=== PATIENT | male | born 1945 | race Caucasian/White ===

== ENCOUNTER 2021-03-01 13:05 | Emergency (ER) | payer MEDICARE, OTHER ==
[~2021-03-01] VITALS: Ht 175.3 cm; Wt 100.0 kg
[~2021-03-01 13:05] MED LIST: AMOXICILLIN500 MG PO; ANTIVERT PO; CEPHALEXIN500 MG PO; CLONIDINE0.1 MG PO; HYDROCO/APAP1 TA9 PO; LORTAB 10 OR; LORTAB 5 OR; LORTAB 5/3255 MG PO; NAPROSYN500 MG OR; PERCOCET1 TA4 PO; ZOFRAN ODT4 MG OR; ZOFRAN ODT4 MG PO
[2021-03-01 15:08] LABS: HEMOGLOBIN 14.2 g/dl (14.0-18.0); IMMATURE GRANULOCYTES 0.3 % (0.0-5.0); MEAN CELL VOLUME 84.9 fL CALC (80.0-100.0); MEAN CORPUSCULAR HGB 27.4 pG CALC (26.0-32.0); MEAN CORPUSCULAR HGB CONC 32.3 g/dL CAL (32.0-36.0); NEUT# 17.69 thou/uL (1.82-7.42); RED BLOOD COUNT 5.18 mill/uL (4.70-6.10); RED CELL DISTRI WIDTH 14.2 % (11.5-15.5)
[2021-03-01 15:21] LABS: ALBUMIN 4.2 g/dL (3.2-5.0); BILIRUBIN, TOTAL 1.1 mg/dL (0.0-1.4); POTASSIUM 3.8 mmol/l (3.5-5.1); TOTAL PROTEIN 8.8 g/dL (6.3-8.2)
[2021-03-01 15:25] LABS: CREATININE 2.1 mg/dL (0.7-1.3)
[2021-03-01 19:23] VITALS: BP 165/80
--- NOTE | 2021-03-07 09:55 | NUR ---
03/07/2021: Spoke with Ronald, RN at [facility] about blood cultures that came back positive for gram positive cocci. Reported that pt was discharged from [facility] on 03/04/2021. Ronald stated that he would get the results over to the pts nurse and physician. Faxed results to [phone] at [phone].
== END 2021-03-01 19:15 ==
LOC: ED 13:05
PROVIDERS: Emergency Medicine
DX: N17.9 Acute kidney failure, unspecified (principal); N13.2 Hydronephrosis with renal and ureteral calculous obstruction; Z20.822 Contact with and (suspected) exposure to COVID-19

== ENCOUNTER 2021-10-02 19:05 | Observation (INO) | payer MEDICARE, OTHER ==
[~2021-10-02] VITALS: Ht 175.3 cm; Wt 93.7 kg
[2021-10-02] VITALS (8 sets, daily range): BP systolic 135–167; BP diastolic 82–102
[2021-10-02 19:31] LABS: GFR FOR AFR.AMER. > 60 ML/MIN (>=60 (CALC)); GFR OTHER RACES 54 ML/MIN (>=60 (CALC))
[2021-10-02] MEDS ORDERED: LEVOTHYROXIN25 MC1 PO (19:31)
[2021-10-02 19:37] LABS: HEMOGLOBIN 13.7 g/dl (14.0-18.0); IMMATURE GRANULOCYTES 0.3 % (0.0-5.0); MEAN CORPUSCULAR HGB CONC 31.9 g/dL CAL (32.0-36.0); NEUT# 9.19 thou/uL (1.82-7.42); RED BLOOD COUNT 5.49 mill/uL (4.70-6.10); RED CELL DISTRI WIDTH 14.4 % (11.5-15.5)
[2021-10-02 19:42] LABS: MEAN CELL VOLUME 78.3 fL CALC (80.0-100.0)
[2021-10-02 19:46] LABS: ALBUMIN 4.5 g/dL (3.2-5.0); ALKALINE PHOSPHATASE 121 u/l (38-126); ANION GAP 15 (6-22 (CALC)); BUN 13 mg/dL (8-23); BUN/CREATININE RATIO 11 (12-20 (CALC)); CARBON DIOXIDE 24 mmol/l (22-30); CHLORIDE 104 mmol/l (95-108); CREATININE 1.3 mg/dL (0.7-1.3); GFR FOR AFR.AMER. > 60 ML/MIN (>=60 (CALC)); GFR OTHER RACES 54 ML/MIN (>=60 (CALC)); POTASSIUM 3.7 mmol/l (3.5-5.1); SGOT/AST 28 u/l (19-48); SODIUM 140 mmol/l (137-146); TOTAL PROTEIN 9.1 g/dL (6.3-8.2)
[2021-10-02 19:48] LABS: ACT PARTIAL THROMBO TIME 27.1 SECONDS (20.0-32.5); INTERNATIONAL NORMALIZED RATIO 1.1 RATIO (0.7-1.3); PROTHROMBIN TIME 10.5 SECONDS (9.0-12.5)
[2021-10-02 19:50] LABS: BILIRUBIN, TOTAL 0.6 mg/dL (0.0-1.4)
[2021-10-02 19:57] LABS: MYOGLOBIN 201 ng/mL (0 - 121)
[2021-10-02 20:41] LABS: URINE BILIRUBIN - DIPSTICK NEGATIVE (NEGATIVE); URINE BLOOD DIPSTICK LARGE (NEGATIVE); URINE COLOR YELLOW; URINE GLUCOSE - DIPSTICK NEGATIVE (NEGATIVE); URINE KETONE NEGATIVE (NEGATIVE); URINE PROTEIN - DIPSTICK NEGATIVE (NEG-TRACE)
[2021-10-02 20:45] LABS: URINE NITRITE - DIPSTICK POSITIVE (Negative)
[2021-10-02 20:47] LABS: URINE LEUK ESTERASE SMALL (NEGATIVE)
[2021-10-02 20:50] LABS: URINE BACTERIA MODERATE hpf; URINE MUCUS FEW hpf (NONE-FEW); URINE SQUAMOUS EPITHELIAL CELL FEW EPI/hpf (0-FEW); URINE WBC 50-100 WBC/hpf (0-5)
[2021-10-03] VITALS (11 sets, daily range): BP systolic 116–167; BP diastolic 62–85
[2021-10-03 05:13] LABS: IMMATURE GRANULOCYTES 0.3 % (0.0-5.0); MEAN CELL VOLUME 77.8 fL CALC (80.0-100.0); MEAN CORPUSCULAR HGB 25.3 pG CALC (26.0-32.0); MEAN CORPUSCULAR HGB CONC 32.6 g/dL CAL (32.0-36.0); NEUT# 5.31 thou/uL (1.82-7.42); RED BLOOD COUNT 4.5 mill/uL (4.70-6.10); RED CELL DISTRI WIDTH 14.4 % (11.5-15.5)
[2021-10-03 05:23] LABS: HEMOGLOBIN 11.4 g/dl (14.0-18.0)
[2021-10-03 05:42] LABS: ALBUMIN 3.2 g/dL (3.2-5.0); ALKALINE PHOSPHATASE 85 u/l (38-126); ANION GAP 14 (6-22 (CALC)); BILIRUBIN, TOTAL 0.3 mg/dL (0.0-1.4); BUN 16 mg/dL (8-23); BUN/CREATININE RATIO 14 (12-20 (CALC)); CARBON DIOXIDE 23 mmol/l (22-30); CHLORIDE 106 mmol/l (95-108); CREATININE 1.2 mg/dL (0.7-1.3); GFR FOR AFR.AMER. > 60 ML/MIN (>=60 (CALC)); GFR OTHER RACES 59 ML/MIN (>=60 (CALC)); MAGNESIUM 1.8 mg/dL (1.6-2.3); POTASSIUM 3.8 mmol/l (3.5-5.1); SGOT/AST 23 u/l (19-48); SODIUM 139 mmol/l (137-146); TOTAL PROTEIN 6.5 g/dL (6.3-8.2)
[2021-10-03 10:56] LABS: TSH, 3RD GENERATION 7.28 uIU/mL (0.47 - 4.68)
[2021-10-04] VITALS (8 sets, daily range): BP systolic 135–176; BP diastolic 68–89
[2021-10-04 05:37] LABS: HEMATOCRIT 37.3 % (39.0-50.0); HEMOGLOBIN 11.9 g/dl (14.0-18.0); IMMATURE GRANULOCYTES 0.1 % (0.0-5.0); MEAN CELL VOLUME 79.4 fL CALC (80.0-100.0); MEAN CORPUSCULAR HGB 25.3 pG CALC (26.0-32.0); MEAN CORPUSCULAR HGB CONC 31.9 g/dL CAL (32.0-36.0); NEUT# 5.45 thou/uL (1.82-7.42); RED BLOOD COUNT 4.7 mill/uL (4.70-6.10); RED CELL DISTRI WIDTH 14.6 % (11.5-15.5)
[2021-10-04 05:48] LABS: ALBUMIN 3.7 g/dL (3.2-5.0); ALKALINE PHOSPHATASE 95 u/l (38-126); ANION GAP 13 (6-22 (CALC)); BILIRUBIN, TOTAL 0.3 mg/dL (0.0-1.4); BUN 17 mg/dL (8-23); BUN/CREATININE RATIO 13 (12-20 (CALC)); CARBON DIOXIDE 24 mmol/l (22-30); CHLORIDE 105 mmol/l (95-108); CREATININE 1.3 mg/dL (0.7-1.3); GFR FOR AFR.AMER. > 60 ML/MIN (>=60 (CALC)); GFR OTHER RACES 54 ML/MIN (>=60 (CALC)); MAGNESIUM 1.9 mg/dL (1.6-2.3); POTASSIUM 3.5 mmol/l (3.5-5.1); SGOT/AST 32 u/l (19-48); SODIUM 139 mmol/l (137-146); TOTAL PROTEIN 7.6 g/dL (6.3-8.2)
[2021-10-05] VITALS (7 sets, daily range): BP systolic 126–169; BP diastolic 62–95
[2021-10-05 05:53] LABS: HEMATOCRIT 36.8 % (39.0-50.0); HEMOGLOBIN 11.5 g/dl (14.0-18.0); IMMATURE GRANULOCYTES 0.1 % (0.0-5.0); MEAN CELL VOLUME 79.5 fL CALC (80.0-100.0); MEAN CORPUSCULAR HGB 24.8 pG CALC (26.0-32.0); MEAN CORPUSCULAR HGB CONC 31.3 g/dL CAL (32.0-36.0); NEUT# 3.03 thou/uL (1.82-7.42); RED BLOOD COUNT 4.63 mill/uL (4.70-6.10); RED CELL DISTRI WIDTH 14.7 % (11.5-15.5)
[2021-10-05 06:10] LABS: ALBUMIN 3.4 g/dL (3.2-5.0); ALKALINE PHOSPHATASE 85 u/l (38-126); ANION GAP 11 (6-22 (CALC)); BILIRUBIN, TOTAL 0.2 mg/dL (0.0-1.4); BUN 17 mg/dL (8-23); BUN/CREATININE RATIO 13 (12-20 (CALC)); CARBON DIOXIDE 27 mmol/l (22-30); CHLORIDE 105 mmol/l (95-108); CREATININE 1.3 mg/dL (0.7-1.3); GFR FOR AFR.AMER. > 60 ML/MIN (>=60 (CALC)); GFR OTHER RACES 54 ML/MIN (>=60 (CALC)); MAGNESIUM 1.9 mg/dL (1.6-2.3); POTASSIUM 3.4 mmol/l (3.5-5.1); SGOT/AST 30 u/l (19-48); SODIUM 140 mmol/l (137-146)
[2021-10-05] MEDS ORDERED: DOXYCYCLINE100 MG PO (12:03)
[2021-10-05] MEDS ORDERED: TRAMADOL HCL50 MG PO (13:03)
== END 2021-10-05 17:33 ==
LOC: ED 19:05 → ED-I 21:00 → ED 21:24 → MS2 21:25
PROVIDERS: Family Medicine; Nurse Practitioner; ADMIT Internal Medicine; ATTEND Internal Medicine
DX: R55 Syncope and collapse (principal); R42 Dizziness and giddiness; S06.0X0A Concussion without loss of consciousness, initial encounter; U07.1 COVID-19; N39.0 Urinary tract infection, site not specified; E03.9 Hypothyroidism, unspecified; B95.7 Other staphylococcus as the cause of diseases classified elsewhere; Y92.002 Bathroom of unspecified non-institutional (private) residence as the place of occurrence of the external cause; W01.198A Fall on same level from slipping, tripping and stumbling with subsequent striking against other object, initial encounter; Z87.442 Personal history of urinary calculi
CPT/HCPCS: G0378; Q9967

== ENCOUNTER 2021-12-13 07:24 | Day surgery (SDC) | payer MEDICARE, OTHER ==
[~2021-12-13] VITALS: Ht 172.7 cm; Wt 92.1 kg
[~2021-12-13 07:24] MED LIST changes: +AMLODIPINE BESY10 MG PO; +ASPIRIN81 MG PO; +CIPROFLOXACN500 MG PO; +DOXYCYCLINE100 MG PO; +LEVOTHYROXIN25 MC1 PO; +LEVOTHYROXIN50 MC1 PO; +METRONIDAZOLE250 MG PO; +OXYCODONE10 M1 PO; +TAMSULOSIN0.4 MG PO; +TRAMADOL HCL50 MG PO
[2021-12-13 12:28] VITALS: BP 122/65
== END 2021-12-13 13:40 | disposition home or self-care (01) ==
LOC: ENDO 07:24 → ORM 09:30 → ENDO 09:30
PROVIDERS: ATTEND Surgery
PROC: 0DBN8ZX Excision of Sigmoid Colon, Via Natural or Artificial Opening Endoscopic, Diagnostic (ICD-10-PCS; principal; 2021-12-13)
PROC: 3E0H8KZ Introduction of Other Diagnostic Substance into Lower GI, Via Natural or Artificial Opening Endoscopic (ICD-10-PCS; 2021-12-13)
DX: D12.5 Benign neoplasm of sigmoid colon (principal); Z87.442 Personal history of urinary calculi
CPT/HCPCS: Q9967

== ENCOUNTER 2021-12-15 08:06 | Inpatient (IN) | payer MEDICARE, OTHER ==
[~2021-12-15] VITALS: Ht 172.7 cm; Wt 92.1 kg
[2021-12-16 19:09] VITALS: BP 110/59
[2021-12-16 20:00] VITALS: BP 120/67
[2021-12-16 21:00] VITALS: BP 115/69
[2021-12-16 22:00] VITALS: BP 118/70
[2021-12-16 23:00] VITALS: BP 123/71
[2021-12-17] VITALS (26 sets, daily range): BP systolic 83–130; BP diastolic 51–73
[2021-12-17 09:01] LABS: HEMATOCRIT 38.4 % (39.0-50.0); IMMATURE GRANULOCYTES 0.4 % (0.0-5.0); MEAN CELL VOLUME 81.9 fL CALC (80.0-100.0); MEAN CORPUSCULAR HGB 25.6 pG CALC (26.0-32.0); MEAN CORPUSCULAR HGB CONC 31.3 g/dL CAL (32.0-36.0); NEUT# 9.23 thou/uL (1.82-7.42); RED BLOOD COUNT 4.69 mill/uL (4.70-6.10); RED CELL DISTRI WIDTH 16.3 % (11.5-15.5)
[2021-12-17 09:20] LABS: CREATININE 1.9 mg/dL (0.7-1.3); POTASSIUM 4.8 mmol/l (3.5-5.1)
[2021-12-17 15:07] LABS: URINE BLOOD DIPSTICK LARGE (NEGATIVE); URINE GLUCOSE - DIPSTICK NEGATIVE (NEGATIVE); URINE KETONE TRACE mg/dL (NEGATIVE); URINE LEUK ESTERASE TRACE (NEGATIVE); URINE PH 5.5 (4.5-8.0); URINE PROTEIN - DIPSTICK 100 mg/dL (NEG-TRACE); URINE SPECIFIC GRAVITY 1.025
[2021-12-17 15:09] LABS: URINE BILIRUBIN - DIPSTICK SMALL (NEGATIVE); URINE COLOR BROWN; URINE NITRITE - DIPSTICK POSITIVE (Negative)
[2021-12-17 15:13] LABS: URINE BACTERIA FEW hpf; URINE RBC >100 RBC/hpf (0-5)
[2021-12-17 15:14] LABS: URINE COARSE GRANULAR CAST MODERATE lpf
[2021-12-17 17:47] LABS: MEAN CELL VOLUME 84.7 fL CALC (80.0-100.0); MEAN CORPUSCULAR HGB 25.9 pG CALC (26.0-32.0); MEAN CORPUSCULAR HGB CONC 30.6 g/dL CAL (32.0-36.0); RED BLOOD COUNT 3.59 mill/uL (4.70-6.10); RED CELL DISTRI WIDTH 16.5 % (11.5-15.5)
[2021-12-17 17:49] LABS: HEMATOCRIT 30.4 % (39.0-50.0); HEMOGLOBIN 9.3 g/dl (14.0-18.0)
[2021-12-17 18:11] LABS: ALBUMIN 1.8 g/dL (3.2-5.0); BILIRUBIN, TOTAL 0.4 mg/dL (0.0-1.4); CREATININE 1.8 mg/dL (0.7-1.3); POTASSIUM 3.8 mmol/l (3.5-5.1); TOTAL PROTEIN 4.1 g/dL (6.3-8.2)
== END 2021-12-17 23:05 | disposition short-term general hospital (02) | DRG 329 ==
LOC: ICU 12-16 06:14 → OR 12-16 07:30 → ICU 12-16 12:29
PROVIDERS: ADMIT Surgery; ATTEND Surgery
PROC: 0DBN0ZZ Excision of Sigmoid Colon, Open Approach (ICD-10-PCS; principal; 2021-12-16)
PROC: 0T788DZ Dilation of Bilateral Ureters with Intraluminal Device, Via Natural or Artificial Opening Endoscopic (ICD-10-PCS; 2021-12-16)
PROC: 02HV33Z Insertion of Infusion Device into Superior Vena Cava, Percutaneous Approach (ICD-10-PCS; 2021-12-17)
PROC: 5A12012 Performance of Cardiac Output, Single, Manual (ICD-10-PCS; 2021-12-17)
PROC: 3E043XZ Introduction of Vasopressor into Central Vein, Percutaneous Approach (ICD-10-PCS; 2021-12-17)
DX: C18.7 Malignant neoplasm of sigmoid colon (principal); A41.9 Sepsis, unspecified organism; K65.9 Peritonitis, unspecified; T81.12XA Postprocedural septic shock, initial encounter; U07.1 COVID-19; C77.2 Secondary and unspecified malignant neoplasm of intra-abdominal lymph nodes; I97.711 Intraoperative cardiac arrest during other surgery; N20.1 Calculus of ureter; K91.89 Other postprocedural complications and disorders of digestive system; T81.44XA Sepsis following a procedure, initial encounter; K62.5 Hemorrhage of anus and rectum; I95.81 Postprocedural hypotension; Y83.8 Other surgical procedures as the cause of abnormal reaction of the patient, or of later complication, without mention of misadventure at the time of the procedure; Y83.2 Surgical operation with anastomosis, bypass or graft as the cause of abnormal reaction of the patient, or of later complication, without mention of misadventure at the time of the procedure; Z87.442 Personal history of urinary calculi; D12.5 Benign neoplasm of sigmoid colon; Z01.818 Encounter for other preprocedural examination; K63.89 Other specified diseases of intestine; N13.9 Obstructive and reflux uropathy, unspecified
CPT/HCPCS: C1769; J0131; J1650; Q9966; Q9967